=== PATIENT | female | born 1950 | race African-American/Black ===

== ENCOUNTER 2019-01-13 13:14 | Outpatient (CLI) | payer MEDICARE ==
--- NOTE | 2019-01-13 14:23 | MRI ---
MRI CERVICAL SPINE: 01/13/2019 HISTORY: Polyneuropathy. Bilateral leg and foot pain. COMPARISON: None. TECHNIQUE: Multiplanar, multisequence MR imaging of the cervical spine is provided without contrast. FINDINGS: Sagittal STIR imaging demonstrates no focal area of osseous marrow edema. There is mild degenerative change at the atlantoaxial interspace. C2-C3: There is mild left facet and uncovertebral osteophyte formation. There is no significant centr al canal or neural foraminal stenosis. C3-C4: There is facet hypertrophy on the left. There is mild disk space narrowing. No significant ravindra tral canal or neural foraminal stenosis. C4-C5: Left sided facet and uncovertebral osteophyte formation with mild left neural foraminal stenos is. No significant central canal or right neural foraminal stenosis. C5-C6: There is disk space narrowing with anterior osteophyte formation and small disk osteophyte com plex partially effacing the ventral thecal sac and causing mild central canal stenosis. No significan t neural foraminal stenosis on either side. C6-C7: There is disk space narrowing and disk desiccation. There is a central annular tear with a sma ll central disk extrusion partially effacing the ventral thecal sac and causing mild central canal st enosis. No significant neural foraminal stenosis. C7-T1: No central canal or neural foraminal stenosis. Mild disk space narrowing. No focal area of abnormal signal intensity is identified within the cervical cord. IMPRESSION: Cervical spine degenerative change as detailed above most prominent at C5-C6 and C6-C7 as described a griffin. POS: ISABELLE
== END 2019-01-13 13:15 | disposition home or self-care (01) ==
LOC: SCSMRI 13:14
PROVIDERS: ATTEND Psychiatry & Neurology Neurology
DX: G63 Polyneuropathy in diseases classified elsewhere (principal); M47.812 Spondylosis without myelopathy or radiculopathy, cervical region
CPT/HCPCS: 72141